=== PATIENT | male | born 1990 | race African-American/Black ===

== ENCOUNTER → 2016-11-02 | Outpatient (REF) | payer OTHER ==
[2016-11-07 00:06] LABS: ANTI-SACCHAROMYCES CEREV. IgA <20.0 Units (0.0-24.9); ANTI-SACCHAROMYCES CEREV. IgG <20.0 Units (0.0-24.9)
== END ==
LOC: M LABDRAW1 15:17
PROVIDERS: ATTEND Internal Medicine Gastroenterology
DX: R10.9 Unspecified abdominal pain (principal); K59.00 Constipation, unspecified